=== PATIENT | male | born 1970 | race Caucasian/White ===

== ENCOUNTER 2025-01-31 01:26 | Emergency (ER) | payer BC ==
[~2025-01-31] VITALS: Ht 172.7 cm; Wt 83.9 kg
[2025-01-31 01:48] VITALS: BP 157/96; PULSE 86; RESP 20; TEMP 97.8; O2SAT 97
[2025-01-31 01:59] LABS: LEUKOCYTE ESTERASE ,URINE NEGATIVE (NEGATIVE); NITRATE,URINE NEGATIVE (NEGATIVE)
[2025-01-31 02:00] LABS: BASOPHIL # 0.1 10^3/uL (0.0-0.1); BASOPHIL % 0.6 % (0.2-1.2); EOSINOPHIL # 0.2 10^3/uL (0.0-0.2); EOSINOPHIL % 2.3 % (0.0-5.0); HEMATOCRIT(ML) 45.7 % (37.0-53.0); IG % 0.20 % (0.00-0.50); LYMPHOCYTES # 2.97 10^3/uL1 (1.0-4.8); LYMPHOCYTES % 35.6 % (24.0-44.0); MEAN CORP HGB 31.0 pg (26-34); MEAN CORP HGB CONCENTRATION 34.6 g/dL (33-36.5); MEAN CORP VOLUME 89.6 fL (78-100); MONOCYTES # 0.7 10^3/uL (0.3-0.8); MONOCYTES % 8.3 % (5.0-12.0); NEUTROPHIL # 4.4 10^3/uL (1.8-7.7); NEUTROPHILS % 53.0 % (41.0-85.0); RED BLOOD CELL 5.10 10^6/uL (4.50-5.90); RED CELL DISTRIBUTION WIDTH 11.9 % (11.5-14.5); WHITE BLOOD CELL 8.3 10^3/uL (4.5-11.0)
[2025-01-31 02:00] LABS: APPEARANCE,URINE CLEAR; UA COLOR YELLOW
[2025-01-31] MEDS ORDERED: ZOFRAN ONE (02:04)
[2025-01-31] MEDS ORDERED: TORADOL ONE (02:04)
[2025-01-31] MEDS: ZOFRAN IV STA (02:07)
[2025-01-31] MEDS: TORADOL IV STA (02:08)
[2025-01-31 02:14] LABS: ALANINE AMINOTRANSFERASE(ML) 31.0 U/L (12-78); ALBUMIN(ML) 3.7 g/dL (3.4-5.0); CREATININE SERUM 0.7 mg/dL (0.59-1.40); EST GFR, NON-AA 117.5 (>/=60)
[2025-01-31 02:36] VITALS: PULSE 84; RESP 20; O2SAT 95
== END 2025-01-31 02:48 | disposition home or self-care (01) ==
LOC: ER 01:26
DX: K59.00 Constipation, unspecified (principal); E11.9 Type 2 diabetes mellitus without complications; M54.50 Low back pain, unspecified; I10 Essential (primary) hypertension
CPT/HCPCS: 99284; 74176; 96374; 96375; 81003; 80053; 85025; 36415; J1885; J2405